=== PATIENT | male | born 1975 | race Caucasian/White ===

== ENCOUNTER 2019-04-26 15:57 | Emergency (ER) | payer MEDICARE, MEDICAID, SELFPAY ==
[2019-04-26 16:09] VITALS: BP 113/69; PULSE 88; RESP 14; TEMP 36.7; O2SAT 97
--- NOTE | 2019-04-26 16:42 | ED.URI ---
HPI - URI/Sore Throat General Chief Complaint: Upper Respiratory Infection Stated Complaint: Cough/congestion/drainage/headache Time Seen by Provider: 04/26/19 16:35 Source: patient Mode of arrival: ambulatory Limitations: no limitations History of Present Illness HPI Narrative: damir Donovan is a 43 yo male with a PMH of cleft palate , GERD, HTN, who comes to the urgent care with ongoing congestion sent with sinus pain x 7 days. Because of history with cleft palate requires antibiotics for treatment Related Data Home Medications Medication Instructions Recorded Confirmed buspirone 10 mg PO BID 04/26/19 04/26/19 gabapentin 100 mg PO TID 04/26/19 04/26/19 ramipril 2.5 mg PO DAILY 04/26/19 04/26/19 ranitidine HCl [Zantac] 150 mg PO BID 04/26/19 04/26/19 sertraline 100 mg PO DAILY 04/26/19 04/26/19 tacrolimus [Envarsus XR] 0.75 mg PO DAILY 04/26/19 04/26/19 Allergies Allergy/AdvReac Type Severity Reaction Status Date / Time lisinopril Allergy Intermediate SEVERE Verified 03/17/18 18:27 JOINT PAIN UNKNOWN ANTI-REJECTION MEDS Allergy Severe Dyspnea / Uncoded 04/26/19 16:18 SOB Review of Systems Review of Systems: Narrative: CONSTITUTIONAL: Denies fever, chills, sweats. EYES: Denies visual changes, redness, discharge. ENT: Denies rhinorrhea, has congestion, sore throat, otalgia. Sinus pain CARDIOVASCULAR: Denies chest pain, palpitations, edema. RESPIRATORY: Denies dyspnea, wheezing, has cough GASTROINTESTINAL: Denies abdominal pain, nausea, vomiting, diarrhea. GENITOURINARY: Denies dysuria, hematuria, abnormal discharge SKIN: Denies rash or itching. NEUROLOGIC: Denies numbness, or focal weakness. PSYCHIATRIC: Denies anxiety or depression. [facility] Family History Family History Other Hypertension Kidney disease Social History Social History (Updated 04/26/19 @ 16:46 by Delmi Martinez CNP) Smoking status: Never smoker Alcohol intake: never Comments At time of signature, I agree with nursing past medical, surgical, social and family history. There is no relevant family history pertinent to the presenting complaint. Exam Narrative: Exam Narrative: GENERAL: This is a well-nourished, well-developed patient, in mild distress. HEAD: normocephalic, atraumatic. EYES:Sclera clear/white. Vision is grossly intact. EARS: External ears normal, auditory canals clear and without drainage, TMs normal without perforation. Hearing grossly intact. NOSE: External nose normal with nasal discharge, nares with redness, rhinorrhea. Maxillary sinus pressure THROAT: Mucous membranes moist, posterior pharynx erythema NECK: Neck supple, tender without lymphadenopathy, masses or thyromegaly. CARDIOVASCULAR: Regular rate and rhythm without murmurs, gallops, or rubs. RESPIRATORY: Clear to auscultation. Breath sounds equal bilaterally. No wheezes, rales, or rhonchi. GASTROINTESTINAL: Abdomen soft, non-tender, nondistended. SKIN: warm, intact with no suspicious lesions or rash, good texture and turgor. NEURO: awake, alert, and oriented to person, place and time. There were no obvious focal neurologic abnormalities. Steady gait EXTREMITIES: Normal range of motion. No edema. BACK: Nontender without deformity or crepitance. Course Course Emergency Course: Start amoxicillin-already on prednisone for kidney transplant, uses Flonase at home Follow up with PCP Vital Signs Vital signs: Vital Signs Temperature 98.1 F 04/26/19 16:09 Pulse Rate 88 04/26/19 16:09 Respiratory Rate 14 04/26/19 16:09 Blood Pressure 113/69 04/26/19 16:09 Pulse Oximetry 97 04/26/19 16:09 Temperature 98.1 F 04/26/19 16:09 Pulse Rate 88 04/26/19 16:09 Respiratory Rate 14 04/26/19 16:09 Blood Pressure 113/69 04/26/19 16:09 Pulse Oximetry 97 04/26/19 16:09 MDM - URI/Sore Throat Differential Diagnosis Differential diagnosis: Likely upper respi
== END 2019-04-26 17:01 | disposition home or self-care (01) ==
PROVIDERS: Emergency Provider Nurse Practitioner; PCP Internal Medicine
DX: J01.01 Acute recurrent maxillary sinusitis (principal); K21.9 Gastro-esophageal reflux disease without esophagitis; I10 Essential (primary) hypertension; Q35.9 Cleft palate, unspecified; F32.9 Major depressive disorder, single episode, unspecified; Z94.0 Kidney transplant status
CPT/HCPCS: 99213; G0463

== ENCOUNTER 2022-06-09 17:33 | Emergency (ER) | payer OTHER, SELFPAY ==
--- NOTE | ~2022-06-09 | XR_ITS ---
EXAM: XR hand LT min 3V DATE: 06/09/2022 17:53 HISTORY: Mag light hit his left hand on fri Swelling/bruise . COMPARISON: None available. FINDINGS: Normal mineralization. No fracture or dislocation. No lytic or blastic lesion. Joint space s are maintained. No erosion or periosteal change. Surgical clips and serpiginous soft tissue density in the lateral wrist soft tissues, likely shunt. IMPRESSION: No acute osseous finding in the left hand. Reviewed, dictated and finalized at location K.
--- NOTE | 2022-06-09 17:39 | ED.GENADULT ---
HPI - General Adult General Chief complaint: Extremity Injury, Upper Stated complaint: Left Hand Injury Source: patient and RN notes reviewed History of Present Illness HPI narrative: 46 yo M presents to urgent care with complaints of left hand pain and swelling. Pt states a 5lb, metal, light fell onto his hand approximately 1 week ago. Pt states he had significnat swelling to the area and was seen in the ER. 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 Pt had a CT obtained in the ER after the incident and had negative findings. Pt states the swelling has gone down 2 days ago and the pain has increased. Denies any numbness or tingling. Pt has been taking Tylenol with no relief. Related Data Home Medications Medication Instructions Recorded Confirmed gabapentin 100 mg capsule 100 mg PO TID 04/26/19 06/09/22 ramipril 2.5 mg capsule 2.5 mg PO DAILY 04/26/19 06/09/22 sertraline 100 mg tablet 150 mg PO DAILY 04/26/19 06/09/22 tacrolimus 0.75 mg tablet,extended 0.75 mg PO QAM 04/26/19 06/09/22 release 24 hr (Envarsus XR) buspirone 15 mg tablet 15 mg PO BID 06/09/22 06/09/22 cholecalciferol (vitamin D3) 25 25 mcg PO DAILY 06/09/22 06/09/22 mcg (1,000 unit) tablet (Vitamin D3) omega 1-ukm-qgy-fish oil 1,200 mg 1 cap PO DAILY 06/09/22 06/09/22 (144 mg-216 mg) capsule (Fish Oil) omeprazole 20 mg capsule,delayed 20 mg PO QHS 06/09/22 06/09/22 release ondansetron 8 mg disintegrating 8 mg PO Q8H PRN Nausea 06/09/22 06/09/22 tablet prednisone 5 mg tablet 5 mg PO DAILY 06/09/22 06/09/22 rosuvastatin 10 mg tablet 10 mg PO DAILY 06/09/22 06/09/22 Allergies Allergy/AdvReac Type Severity Reaction Status Date / Time lisinopril AdvReac Intermediate SEVERE Verified 06/09/22 17:56 JOINT PAIN UNKNOWN ANTI-REJECTION MEDS Allergy Severe Dyspnea / Uncoded 06/09/22 18:03 SOB Review of Systems Review of Systems: CONSTITUTIONAL: Denies fever, chills, or sweats. EYES: Denies visual changes, redness, or discharge. ENT: Denies otalgia and sore throat CARDIOVASCULAR: Denies chest pain, palpitations, or edema. RESPIRATORY: Denies cough or dyspnea. GASTROINTESTINAL: Denies abdominal pain, nausea, vomiting, or diarrhea. GENITOURINARY: Denies dysuria or hematuria. SKIN: Denies rash or itching. MUSCULOSKELETAL: Left hand pain NEUROLOGIC: Denies headache, numbness, or weakness. Pertinent positives per HPI. [facility] Family History Family History Other Hypertension Kidney disease Social History Social History (Updated 04/26/19 @ 16:46 by Delmi Martinez, CONSULTANT NURSE) Smoking status: Never smoker Alcohol intake: never Comments At the time of my signature, I reviewed and agree with the nursing past medical, surgical, social, and family history. There is no relevant family history pertinent to the patient complaint. Exam Narrative: GENERAL: This is a well-nourished, well-developed patient, in no apparent distress. HEAD: normocephalic, atraumatic. EYES: Sclera clear/white. Vision is grossly intact. EARS: External ears normal, auditory canals clear and without drainage. Hearing grossly intact. NOSE: External nose normal with no obvious nasal discharge, nares without redness, no rhinorrhea. CARDIOVASCULAR: Regular rate and rhythm without murmurs, gallops, or rubs. RESPIRATORY: Clear to auscultation. Breath sounds equal bilaterally. No wheezes, rales, or rhonchi. GASTROINTESTINAL: Abdomen soft, non-tender, nondistended. Bowel sounds are active. No hepato-splenomegaly, or palpable masses. No guarding. SKIN: warm, intact with no suspicious lesions or rash, good texture and turgor. NEURO: awake, alert, and oriented to person, place and time. There were no obvious focal neurologic abnormalities. EXTREMITIES: No clubbing, cyanosis. Moderate swelling noted over left dorsal hand extending into wrist. No wrist tenderness. Tenderness noted over snuff box area. brusing
[2022-06-09 17:43] VITALS: BP 130/78; PULSE 83; RESP 16; TEMP 37; O2SAT 98
== END 2022-06-09 18:33 | disposition home or self-care (01) ==
PROVIDERS: Emergency Provider Nurse Practitioner Family; PCP Internal Medicine
DX: S60.222A Contusion of left hand, initial encounter (principal); W20.8XXA Other cause of strike by thrown, projected or falling object, initial encounter
CPT/HCPCS: 73130; 99203; G0463

== ENCOUNTER 2022-07-15 18:04 | Emergency (ER) | payer OTHER, SELFPAY ==
[2022-07-15 18:09] VITALS: BP 125/74; PULSE 89; RESP 18; TEMP 36.1; O2SAT 99
--- NOTE | 2022-07-15 18:11 | ED.URI ---
HPI - URI/Sore Throat General Chief Complaint: Upper Respiratory Infection Stated Complaint: congestion Source: patient, family and RN notes reviewed History of Present Illness HPI Narrative: 47 yo M presents to urgent care with complaints of congestion, cough, and HERRERA x 6 days. Pt states he was coughing up clear phlegm initially but now his phlegm is yellow in color. Pt reports cold sweats. Reports some SOB with exertion. Pt denies any fevers, chest pain, vomiting, or abdominal pain. Pt is a kidney transplant pt. Related Data Home Medications Medication Instructions Recorded Confirmed gabapentin 100 mg capsule 100 mg PO TID 04/26/19 07/15/22 ramipril 2.5 mg capsule 2.5 mg PO DAILY 04/26/19 07/15/22 sertraline 100 mg tablet 150 mg PO DAILY 04/26/19 07/15/22 tacrolimus 0.75 mg tablet,extended 0.75 mg PO QAM 04/26/19 07/15/22 release 24 hr (Envarsus XR) buspirone 15 mg tablet 15 mg PO BID 06/09/22 07/15/22 cholecalciferol (vitamin D3) 25 25 mcg PO DAILY 06/09/22 07/15/22 mcg (1,000 unit) tablet (Vitamin D3) omega 7-swi-kff-fish oil 1,200 mg 1 cap PO DAILY 06/09/22 07/15/22 (144 mg-216 mg) capsule (Fish Oil) omeprazole 20 mg capsule,delayed 20 mg PO QHS 06/09/22 07/15/22 release prednisone 5 mg tablet 5 mg PO DAILY 06/09/22 07/15/22 rosuvastatin 10 mg tablet 10 mg PO DAILY 06/09/22 07/15/22 Allergies Allergy/AdvReac Type Severity Reaction Status Date / Time lisinopril AdvReac Intermediate SEVERE Verified 07/15/22 18:18 JOINT PAIN UNKNOWN ANTI-REJECTION MEDS Allergy Severe Dyspnea / Uncoded 07/15/22 18:18 SOB Review of Systems Review of Systems: Pertinent positives and pertinent negatives per HPI. PMFSH Family History Family History Other Hypertension Kidney disease Social History Social History (Updated 04/26/19 @ 16:46 by Delmi Martinez, WATCH CRYSTAL CUTTER) Smoking status: Never smoker Alcohol intake: never Comments At the time of my signature, I reviewed and agree with the nursing past medical, surgical, social, and family history. There is no relevant family history pertinent to the patient complaint. Exam Narrative: GENERAL: This is a well-nourished, well-developed patient, in no apparent distress. HEAD: normocephalic, atraumatic. EYES: Sclera clear/white. Vision is grossly intact. EARS: External ears normal, auditory canals clear and without drainage. Hearing grossly intact. NOSE: External nose normal with no obvious nasal discharge, nares without redness, no rhinorrhea. THROAT: Mucous membranes moist, posterior pharynx clear. NECK: Neck supple, non-tender without lymphadenopathy, masses or thyromegaly. CARDIOVASCULAR: Regular rate and rhythm without murmurs, gallops, or rubs. RESPIRATORY: Clear to auscultation. Breath sounds equal bilaterally. No wheezes, rales, or rhonchi. SKIN: warm, intact with no suspicious lesions or rash, good texture and turgor. NEURO: awake, alert, and oriented to person, place and time. There were no obvious focal neurologic abnormalities. Course Course Level of Care: Express Care Visit Vital Signs Vital signs: Vital Signs Temperature 97 F L 07/15/22 18:09 Pulse Rate 89 07/15/22 18:09 Respiratory Rate 18 07/15/22 18:09 Blood Pressure 125/74 07/15/22 18:09 Pulse Oximetry 99 07/15/22 18:09 Oxygen Delivery Room Air 07/15/22 18:09 Temperature 97 F L 07/15/22 18:09 Pulse Rate 89 07/15/22 18:09 Respiratory Rate 18 07/15/22 18:09 Blood Pressure 125/74 07/15/22 18:09 Pulse Oximetry 99 07/15/22 18:09 Oxygen Delivery Room Air 07/15/22 18:09 Reviewed MDM - URI/Sore Throat MDM Narrative Medical decision making narrative: Take steroids as directed. May use the inhaler every 4-6 hours as needed for coughing. Increase fluids at home. Avoid any and all smoke. May use a humidifier in the bedroom. Increase your Vitamin C. Follow-up with personal
== END 2022-07-15 18:35 | disposition home or self-care (01) ==
PROVIDERS: Emergency Provider Nurse Practitioner Family; PCP Internal Medicine
DX: J40 Bronchitis, not specified as acute or chronic (principal); J32.9 Chronic sinusitis, unspecified; Z94.0 Kidney transplant status; E78.00 Pure hypercholesterolemia, unspecified; I10 Essential (primary) hypertension; K21.9 Gastro-esophageal reflux disease without esophagitis; F41.9 Anxiety disorder, unspecified; F32.A Depression, unspecified
CPT/HCPCS: 99213; G0463

== ENCOUNTER 2023-04-19 19:00 | Emergency (ER) | payer MEDICARE, SELFPAY ==
--- NOTE | ~2023-04-19 | XR_ITS ---
XR ankle RT min 3V 04/19/2023 19:17 INDICATION: Right ankle pain PROCEDURE: 4 views right ankle COMPARISON: No prior studies for comparison. FINDINGS: Fracture, dislocation or subluxation is not identified. The soft tissues appear within norm al limits. No foreign bodies are identified. Moderate soft tissue swelling of the ankle. IMPRESSION: 1: NO ACUTE BONE OR JOINT ABNORMALITY IDENTIFIED. Reviewed, dictated and finalized at location A.
[2023-04-19 19:08] VITALS: BP 114/74; PULSE 79; RESP 16; TEMP 35.9; O2SAT 97
--- NOTE | 2023-04-19 19:42 | ED.LOWEXIN ---
HPI - Extremity Injury (Lower) General Chief Complaint: Extremity Injury, Lower Stated Complaint: right ankle injury Time Seen by Provider: 04/19/23 19:32 Source: patient, RN notes reviewed and old records reviewed Mode of arrival: ambulatory Limitations: no limitations History of Present Illness HPI Narrative: 47 year old male who presents to [facility] with complaints of rolling his right ankle 3 weeks ago and has been having some intermittent swelling to the medial aspect of his right ankle since. Patient reports that he has been applying ice intermittently to his ankle and elevated and has been taking Tylenol for his discomfort. MD complaint: ankle injury (right) Onset (ago): week(s) (3) Type of Injury: other (rolled his ankle) Place: home Severity scale (1-10): 2 Treatments prior to arrival: cold therapy and other (Tylenol, elevation, courtney) Related Data Home Medications Medication Instructions Recorded Confirmed gabapentin 100 mg capsule 100 mg PO TID 04/26/19 04/19/23 ramipril 2.5 mg capsule 2.5 mg PO DAILY 04/26/19 04/19/23 sertraline 100 mg tablet 150 mg PO DAILY 04/26/19 04/19/23 tacrolimus 0.75 mg tablet,extended 0.75 mg PO QAM 04/26/19 04/19/23 release 24 hr (Envarsus XR) buspirone 15 mg tablet 15 mg PO BID 06/09/22 04/19/23 cholecalciferol (vitamin D3) 25 25 mcg PO DAILY 06/09/22 04/19/23 mcg (1,000 unit) tablet (Vitamin D3) omega 9-oho-nly-fish oil 1,200 mg 1 cap PO DAILY 06/09/22 04/19/23 (144 mg-216 mg) capsule (Fish Oil) omeprazole 20 mg capsule,delayed 20 mg PO QHS 06/09/22 04/19/23 release rosuvastatin 10 mg tablet 10 mg PO DAILY 06/09/22 04/19/23 Allergies Allergy/AdvReac Type Severity Reaction Status Date / Time lisinopril AdvReac Intermediate SEVERE Verified 04/19/23 19:36 JOINT PAIN Review of Systems Review of Systems: CONSTITUTIONAL: Denies fever, chills, or sweats. EYES: Denies visual changes, redness, or discharge. ENT: Denies rhinorrhea, congestion, sore throat, or otalgia. CARDIOVASCULAR: Denies chest pain, palpitations, or edema. RESPIRATORY: Denies cough or dyspnea. GASTROINTESTINAL: Denies abdominal pain, nausea, vomiting, or diarrhea. GENITOURINARY: Denies dysuria or hematuria. SKIN: Denies rash or itching. MUSCULOSKELETAL: Denies back pain, positive for right medial ankle pain, or myalgia. NEUROLOGIC: Denies headache, numbness, or weakness. PSYCHIATRIC: Reports history of anxiety or depression. All systems reviewed & are unremarkable except as noted in HPI and below PMFSH Past Medical History Medical History (Updated 04/20/23 @ 15:24 by Nicole Purcell NP) Arteriovenous fistula of left upper extremity Cleft palate Elevated serum cholesterol Fracture of right ankle GERD (gastroesophageal reflux disease) HTN (hypertension) Neuropathy Surgical History Surgical History (Updated 04/20/23 @ 15:24 by Nicole Purcell NP) History of appendectomy History of repair of cleft lip 18 surgeries Kidney transplant recipient Family History Family History Other Hypertension Kidney disease Social History Social History (Updated 04/20/23 @ 15:18 by Nicole Purcell NP) Smoking status: Never smoker Alcohol intake: never Living arrangements: with family Gender identity (if verbalized by the patient): Male Comments At time of signature, agree with nursing past medical, surgical, social and family history. There is no relevant family history pertinent to the presenting complaint Exam Narrative: GENERAL: Well-appearing, well-nourished, and in no acute distress. HEAD: Normocephalic, atraumatic. EYES: PERRLA and EOMI. ENT: Nares clear, no rhinorrhea or epistaxis. Mucous membranes moist.TM;s normal throat pink with no swelling NECK: Supple.no lymphadenopathy CHEST: Clear to auscultation. No respiratory distress. SAO2 97% on room air HEART: Regular rate and rhythm. No murmur heard. Norm
== END 2023-04-19 19:55 | disposition home or self-care (01) ==
PROVIDERS: Emergency Provider Registered Nurse
DX: S93.401A Sprain of unspecified ligament of right ankle, initial encounter (principal); S96.911A Strain of unspecified muscle and tendon at ankle and foot level, right foot, initial encounter; X50.9XXA Other and unspecified overexertion or strenuous movements or postures, initial encounter; K21.9 Gastro-esophageal reflux disease without esophagitis; I10 Essential (primary) hypertension; G62.9 Polyneuropathy, unspecified; Z94.0 Kidney transplant status
CPT/HCPCS: 73610; 99213; G0463

== ENCOUNTER 2023-12-26 13:40 | Emergency (ER) | payer MEDICARE, SELFPAY ==
--- NOTE | ~2023-12-26 | XR_ITS ---
Clinical Indication: Cough PA and lateral views of the chest: Comparison: 03/17/2018 Findings: The lungs are clear, without evidence of focal consolidation or pleural effusion. Cardiome diastinal silhouette is within normal limits. Bones and soft tissues are unremarkable. Impression: Normal chest. Reviewed, dictated and finalized at [facility]. TENANCE COORDINATOR Impression: Normal chest.
--- NOTE | 2023-12-26 13:42 | ED.URI ---
HPI - URI/Sore Throat General Chief Complaint: Upper Respiratory Infection Stated Complaint: Congestion/Cough/Chills Time Seen by Provider: 12/26/23 13:42 Source: patient, RN notes reviewed and old records reviewed Mode of arrival: ambulatory Limitations: no limitations History of Present Illness HPI Narrative: 48-year-old male to [facility] with complaint nasal congestion, chills without fever, sore throat and body aches for 5 days. Patient has attempted to treat at home with cough drops with little relief. Patient denies shortness of breath, chest pain, ear pain, GI complaints, pertinent medical history. Patient able to tolerate fluids by mouth. Patient resting comfortably in exam room in no acute distress. Respirations even and nonlabored. Patient able to speak in complete sentences without difficulty. Related Data Home Medications Medication Instructions Recorded Confirmed gabapentin 100 mg capsule 100 mg PO TID 04/26/19 04/19/23 ramipril 2.5 mg capsule 2.5 mg PO DAILY 04/26/19 04/19/23 sertraline 100 mg tablet 150 mg PO DAILY 04/26/19 04/19/23 tacrolimus 0.75 mg tablet,extended 0.75 mg PO QAM 04/26/19 04/19/23 release 24 hr (Envarsus XR) buspirone 15 mg tablet 15 mg PO BID 06/09/22 04/19/23 cholecalciferol (vitamin D3) 25 25 mcg PO DAILY 06/09/22 04/19/23 mcg (1,000 unit) tablet (Vitamin D3) omega 5-ljf-elf-fish oil 1,200 mg 1 cap PO DAILY 06/09/22 04/19/23 (144 mg-216 mg) capsule (Fish Oil) omeprazole 20 mg capsule,delayed 20 mg PO QHS 06/09/22 04/19/23 release rosuvastatin 10 mg tablet 10 mg PO DAILY 06/09/22 04/19/23 prednisone 5 mg tablet mg 12/26/23 Allergies Allergy/AdvReac Type Severity Reaction Status Date / Time lisinopril AdvReac Intermediate SEVERE Verified 04/19/23 19:36 JOINT PAIN Review of Systems Review of Systems: All systems reviewed & are unremarkable except as noted in HPI and below Constitutional: Constitutional: Reports as per HPI, Reports body ache(s) and Reports chills Eyes: Eyes: Reports no additional eye complaints ENT: Reports as per HPI and Reports sore throat Cardiovascular: Cardiovascular: Reports no additional cardiovascular complaints, Denies chest pain and Denies dyspnea Respiratory: Respiratory: Reports as per HPI, Reports cough and Denies dyspnea Musculoskeletal: Musculoskeletal: Reports no additional musculoskeletal complaints Neurologic: Reports system reviewed and no additional complaints, except as documented Psychiatric: Psychiatric: Reports no additional psychiatric complaints PMFSH Past Medical History Medical History Arteriovenous fistula of left upper extremity Cleft palate Elevated serum cholesterol Fracture of right ankle GERD (gastroesophageal reflux disease) HTN (hypertension) Neuropathy Surgical History Surgical History History of appendectomy History of repair of cleft lip 18 surgeries Kidney transplant recipient Family History Family History Other Hypertension Kidney disease Social History Social History Smoking status: Never smoker Alcohol intake: never Living arrangements: with family Gender identity (if verbalized by the patient): Male Comments At the time of my signature, I reviewed and agree with the nursing past medical, surgical, social, and family history. There is no relevant family history pertinent to the patient complaint. Exam Const: General: cooperative, comfortable, no acute distress, alert and well nourished Nutritional Appearance: well nourished Orientation/consciousness: patient oriented x3 Limitations: no limitations HENMT: Head: normal to inspection Ears: external ears normal Face/Nose/Sinus: Normal external nose present, Normal nares present, normal facial exam, No erythema and No edema Face and sinus: normal facial exam, no erythema and no edema Mouth: Yes Normal oral and palatal mucosa present Throat: posterior oropharynx abnormal erythema Eyes: General: appearance normal, both eyes and all related structures Neck: Neck: normal visual inspection, full ROM and no meningeal signs Lymphatic: no lymphadenopathy noted and no lymphedema noted Chest: Chest palpation & inspection: normal inspection of the chest Resp: Effort & Inspection: normal respiratory effort and able to speak in complete sentences Auscultation: clear to auscultation bilaterally and diminished lung sounds diffuse Cardio: Jugular venous distension: no JVD Rate: regular rate Rhythm: regular rhythm Back/Spine/Pelvis: Cervical Spine: cervical ROM normal Skin: General skin exam: normal color, no rashes or lesions noted and turgor normal Neuro: General: patient oriented x3, gait normal, moves all extremities and no meningeal signs Speech: normal speech Gait exam (Neuro): Normal gait present Extrem: General: normal to inspection, full ROM and capillary refill normal Psych: Appearance: grossly normal and well kempt Course Course Emergency Course: Some parts of this dictation were generated by voice recognition software and may contain typographical and/or grammatical inaccuracies. Level of Care: Express Care Visit Vital Signs Vital signs: Vital Signs Temperature 35.8 C L 12/26/23 13:59 Pulse Rate 78 12/26/23 13:59 Respiratory Rate 18 12/26/23 13:59 Blood Pressure 135/66 12/26/23 13:59 Pulse Oximetry 97 12/26/23 13:59 Oxygen Delivery Room Air 12/26/23 13:59 Temperature 35.8 C L 12/26/23 13:59 Pulse Rate 78 12/26/23 13:59 Respiratory Rate 18 12/26/23 13:59 Blood Pressure 135/66 12/26/23 13:59 Pulse Oximetry 97 12/26/23 13:59 Oxygen Delivery Room Air 12/26/23 13:59 reviewed MDM - URI/Sore Throat MDM Narrative Medical decision making narrative: 48-year-old male to [facility] Care with complaint nasal congestion, chills without fever, sore throat and body aches for 5 days. Patient has attempted to treat at home with cough drops with little relief. Patient denies shortness of breath, chest pain, ear pain, GI complaints, pertinent medical history. Patient able to tolerate fluids by mouth. Patient resting comfortably in exam room in no acute distress. Respirations even and nonlabored. Patient able to speak in complete sentences without difficulty. On exam, posterior oropharynx erythematous. Bilateral lung sounds diminished diffusely. Cough present during exam. Chest x-ray in clinic negative for acute findings. Patient is sitting comfortably in exam room nontoxic in appearance. Patient appropriate for outpatient treatment and follow-up. Discharge instructions reviewed with patient, as well as provided in writing per nursing staff. The instructions also include specific and strict return/GO TO THE ER as well as f/u information. All questions have been answered, and the patient deny any further questions with discharge and discharge plan. Some parts of this dictation were generated by voice recognition software and may contain typographical and/or grammatical inaccuracies. Differential Diagnosis Differential diagnosis: Likely upper respiratory infection, croup, otitis media, sinusitis, viral infection, bronchitis, influenza and pharyngitis Imaging Data Radiologist's impression: Clinical Indication: Cough PA and lateral views of the chest: Comparison: 03/17/2018 Findings: The lungs are clear, without evidence of focal consolidation or pleural effusion. Cardiomediastinal silhouette is within normal limits. Bones and soft tissues are unremarkable. Impression: Normal chest. Discharge Plan Discharge Clinical Impression: Upper respiratory infection Patient Disposition: Home, Self-Care Condition: Stable Instructions: Upper Respiratory Infection (DC) Additional Instructions: Your symptoms are likely due to a viral illness, which is not treated with antibiotics. Viral symptoms can be present for up to a few weeks. -Alternate Tylenol and Motrin per package directions for fever or pain. -Antihistamine medication such as Benadryl at night and Zyrtec/Claritin/Tiffany during the day can help improve symptoms. -Use Flonase twice a day for 5 days then daily to help reduce the inflammation and dry up your sinuses. -You can also use Coricidin. Be sure to drink plenty of water with these medications at least 8 ounces with every dose and it is important to drink 8 to 10 glasses of water per day. Water is a natural decongestant -Eat and drink things that are easy to swallow, like tea or soup, or popsicles. -Oral rinses such as: Salt water gargles and/or may use topical anesthetic (eg. Chloraseptic spray) or lozenges to relieve dryness or throat pain). -Frequent hand washing or hand agricultural labor camp manager is one of the best ways to prevent spread of infection. -Using a vaporizer or humidifier at night will also help thin secretions and help with coughing up phlegm. -Follow up with primary care provider in 2-3 days if condition is not improving; or seek ER visit if you have trouble breathing, cannot drink enough fluids, have muffled voice, difficulty opening your mouth, or severe swelling. Prescriptions: No Action sertraline 100 mg Tablet 150 mg PO DAILY ramipril 2.5 mg Capsule 2.5 mg PO DAILY gabapentin 100 mg Capsule 100 mg PO TID Envarsus XR 0.75 mg Tablet Extended Release 24 Hr 0.75 mg PO QAM buspirone 15 mg tablet 15 mg PO BID omeprazole 20 mg capsule,delayed release(DR/EC) 20 mg PO QHS rosuvastatin 10 mg tablet 10 mg PO DAILY cholecalciferol (vitamin D3) [Vitamin D3] 25 mcg (1,000 unit) Tablet 25 mcg PO DAILY omega 3-tij-kvp-fish oil [Fish Oil] 1,200 (144-216) mg Capsule 1 cap PO DAILY prednisone 5 mg tablet albuterol sulfate 90 mcg/actuation HFA aerosol inhaler 2 puff inhalation QID PRN (Reason: shortness of breath or wheezing) Qty: 8.5 0RF Follow-up/Referrals: Alfonso,MD Renea [Primary Care Provider] - Stand Alone Forms: Work/School Release IP
[2023-12-26 13:59] VITALS: BP 135/66; PULSE 78; RESP 18; TEMP 35.8; O2SAT 97
== END 2023-12-26 15:12 | disposition home or self-care (01) ==
PROVIDERS: Emergency Provider Nurse Practitioner Family; PCP Internal Medicine
DX: J06.9 Acute upper respiratory infection, unspecified (principal); I10 Essential (primary) hypertension; K21.9 Gastro-esophageal reflux disease without esophagitis; G62.9 Polyneuropathy, unspecified; Z94.0 Kidney transplant status
CPT/HCPCS: 71046; 99213; G0463

== ENCOUNTER 2024-01-10 18:39 | Emergency (ER) | payer MEDICARE, SELFPAY ==
[2024-01-10 18:42] VITALS: BP 143/84; PULSE 84; RESP 22; TEMP 36; O2SAT 98
--- NOTE | 2024-01-10 18:58 | ED.URI ---
HPI - URI/Sore Throat General Chief Complaint: Upper Respiratory Infection Stated Complaint: wheezing/fatigue Time Seen by Provider: 01/10/24 18:58 Source: patient and RN notes reviewed Mode of arrival: ambulatory Limitations: no limitations History of Present Illness HPI Narrative: 48-year-old male presents with concern of for 2 new half week cough. Reports he was seen 2 weeks ago and had a negative chest x-ray. Reports his cough has persisted and has become productive. He reports fatigue. Reports difficulty sleeping at night due to his cough. He has had a kidney transplant and is on immunosuppressant drugs. MD elicited complaint: cough Related Data Home Medications Medication Instructions Recorded Confirmed gabapentin 100 mg capsule 100 mg PO TID 04/26/19 04/19/23 ramipril 2.5 mg capsule 2.5 mg PO DAILY 04/26/19 04/19/23 sertraline 100 mg tablet 150 mg PO DAILY 04/26/19 04/19/23 tacrolimus 0.75 mg tablet,extended 0.75 mg PO QAM 04/26/19 04/19/23 release 24 hr (Envarsus XR) buspirone 15 mg tablet 15 mg PO BID 06/09/22 04/19/23 cholecalciferol (vitamin D3) 25 25 mcg PO DAILY 06/09/22 04/19/23 mcg (1,000 unit) tablet (Vitamin D3) omega 1-hfl-gsj-fish oil 1,200 mg 1 cap PO DAILY 06/09/22 04/19/23 (144 mg-216 mg) capsule (Fish Oil) omeprazole 20 mg capsule,delayed 20 mg PO QHS 06/09/22 04/19/23 release rosuvastatin 10 mg tablet 10 mg PO DAILY 06/09/22 04/19/23 prednisone 5 mg tablet mg 12/26/23 Allergies Allergy/AdvReac Type Severity Reaction Status Date / Time lisinopril AdvReac Intermediate SEVERE Verified 04/19/23 19:36 JOINT PAIN Review of Systems Review of Systems: CONSTITUTIONAL: Denies malaise, chills, sweats, or fever. Reports fatigue EYES: Denies visual changes, redness, or discharge. ENT: Reports rhinorrhea, congestion CARDIOVASCULAR: Denies chest pain, palpitations, or edema. RESPIRATORY: Reports productive cough and chest congestion. Denies dyspnea. GASTROINTESTINAL: Denies abdominal pain, nausea, vomiting, diarrhea SKIN: Denies rash or itching. MUSCULOSKELETAL: Denies myalgia. NEUROLOGIC: Denies headache. All systems reviewed & are unremarkable except as noted in HPI and below PMFSH Past Medical History Medical History Arteriovenous fistula of left upper extremity Cleft palate Elevated serum cholesterol Fracture of right ankle GERD (gastroesophageal reflux disease) HTN (hypertension) Neuropathy Surgical History Surgical History History of appendectomy History of repair of cleft lip 18 surgeries Kidney transplant recipient Family History Family History Other Hypertension Kidney disease Social History Social History Smoking status: Never smoker Alcohol intake: never Living arrangements: with family Gender identity (if verbalized by the patient): Male Comments At time of signature, agree with nursing past medical, surgical, social and family history. There is no relevant family history pertinent to the presenting complaint Exam Narrative: GENERAL: Well-appearing, well-nourished, and in no acute distress. HEAD: Normocephalic EYES: PERRLA, conjunctivae clear ENT: Nares clear, turbinates edematous and erythematous, clear discharge. Mucous membranes moist. TM pearly mazariegos with dull light reflex bilaterally; no tragal tenderness. Oropharynx not erythematous without lesions. Tonsils not enlarged and without exudate, no drooling, no hoarseness, no trismus, uvula midline. NECK: Supple. No lymphadenopathy CHEST: Clear to auscultation, breath sounds equal. No wheezing, rhonchi, rales, or stridor. No respiratory distress, speaks in full sentences. HEART: Regular rate and rhythm. No murmur heard. SKIN: Warm, dry, no rash. NEURO: Alert and oriented x3. PSYCH: Normal mood and affect Course Course Emergency Course: Patient is aware of diagnosis, understands and agrees to treatment plan. Anticipatory guidance given. Patient agrees to follow-up as directed and is aware of reasons to seek care at the emergency department. Portions of this record may have been created with voice recognition software Level of Care: Express Care Visit Vital Signs Vital signs: Vital Signs Temperature 96.8 F L 01/10/24 18:42 Pulse Rate 84 01/10/24 18:42 Respiratory Rate 22 H 01/10/24 18:42 Blood Pressure 143/84 H 01/10/24 18:42 Pulse Oximetry 98 01/10/24 18:42 Oxygen Delivery Room Air 01/10/24 18:42 Temperature 96.8 F L 01/10/24 18:42 Pulse Rate 84 01/10/24 18:42 Respiratory Rate 22 H 01/10/24 18:42 Blood Pressure 143/84 H 01/10/24 18:42 Pulse Oximetry 98 01/10/24 18:42 Oxygen Delivery Room Air 01/10/24 18:42 Reviewed. MDM - URI/Sore Throat MDM Narrative Medical decision making narrative: Differential diagnosis considered: Hernandez virus, strep pharyngitis, allergic rhinitis, upper respiratory tract infection, sinusitis, rhinosinusitis, nasopharyngitis. viral pharyngitis, otitis media, otitis externa, pneumonia, bronchitis, viral cough syndrome, viral syndrome, and influenza. Exam findings show no acute concerns or changes; patient is non-toxic appearing and is in no distress. Patient is appropriate for outpatient treatment and follow-up. Lab Data Attestation: I reviewed the patient's lab results. Critical Care Time Critical Care Time Critical Care Time: No Discharge Plan Discharge Clinical Impression: Lower respiratory tract infection Patient Disposition: Home, Self-Care Condition: Stable Instructions: Antibiotic Form, Acute Cough (ED) Additional Instructions: Take medications as prescribed Also, recommend symptomatic treatment includes: rest, fluids, and increase humidity of the air at home. Recommend Acetaminophen as directed on the bottle to reduce fever, pain, headache. Avoid smoking/second-hand smoke. Please schedule a follow-up visit with your personal physician for further evaluation and treatment within 3-5days. If your symptoms persist, change or worsen significantly before you can contact your personal physician then please, without delay, go to the emergency department for further evaluation. Prescriptions: New azithromycin [Zithromax Z-Gene] 250 mg tablet See Rx Instructions .ROUTE .COMPLEX Qty: 6 0RF Rx Instructions: take 500 mg today (day 1), then 250 mg for 4 days (days 2-5) No Action sertraline 100 mg Tablet 150 mg PO DAILY ramipril 2.5 mg Capsule 2.5 mg PO DAILY gabapentin 100 mg Capsule 100 mg PO TID Envarsus XR 0.75 mg Tablet Extended Release 24 Hr 0.75 mg PO QAM buspirone 15 mg tablet 15 mg PO BID omeprazole 20 mg capsule,delayed release(DR/EC) 20 mg PO QHS rosuvastatin 10 mg tablet 10 mg PO DAILY cholecalciferol (vitamin D3) [Vitamin D3] 25 mcg (1,000 unit) Tablet 25 mcg PO DAILY omega 8-jqs-hrt-fish oil [Fish Oil] 1,200 (144-216) mg Capsule 1 cap PO DAILY prednisone 5 mg tablet albuterol sulfate 90 mcg/actuation HFA aerosol inhaler 2 puff inhalation QID PRN (Reason: shortness of breath or wheezing) Qty: 8.5 0RF Follow-up/Referrals: Alfonso,MD Renea [Primary Care Provider] - Time of Disposition: 19:05
== END 2024-01-10 19:09 | disposition home or self-care (01) ==
PROVIDERS: Emergency Provider Nurse Practitioner; PCP Internal Medicine
DX: J22 Unspecified acute lower respiratory infection (principal); I10 Essential (primary) hypertension; K21.9 Gastro-esophageal reflux disease without esophagitis; G62.9 Polyneuropathy, unspecified; Z94.0 Kidney transplant status
CPT/HCPCS: 99213; G0463

== ENCOUNTER 2024-05-27 11:16 | Emergency (ER) | payer MEDICARE, SELFPAY ==
[2024-05-27 11:25] VITALS: BP 150/99; PULSE 86; RESP 20; TEMP 36.7; O2SAT 96
--- NOTE | 2024-05-27 11:43 | ED.URI ---
HPI - URI/Sore Throat General Chief Complaint: Upper Respiratory Infection Stated Complaint: Nasal Congestion/Headache/Cough Time Seen by Provider: 05/27/24 11:43 Source: patient, RN notes reviewed and old records reviewed Mode of arrival: ambulatory Limitations: no limitations History of Present Illness HPI Narrative: 48 year old male presents to express care with complaints of nasal congestion sneezing, headache and cough with some wheezing noted since Monday. Patient reports no known fevers, chills or sweats or any body aches. He states that he has been taking Sudafed for his symptoms. Patient reports history of sinus problems and has had repair of cleft lip with total of 18 surgeries. Patient is kidney transplant patient in 2017 with prior dialysis. Patient reports that kidney is functioning well and he takes his daily anti rejection medications MD elicited complaint: cough, rhinorrhea, nasal congestion, sinus pain and other (headache) Pertinent past history: immunosuppression (on anti rejection edications for kidney transplant) and other (sinus problems and repair of cleft lip) Onset (ago): day(s) (day 3 of symptoms) Consistency: constant Pain scale (0-10): 4 Able to tolerate fluids by mouth: Yes Treatments prior to arrival: other (Sudafed) Related Data Home Medications ?Medication ?Instructions ?Recorded ?Confirmed ?Last Taken ?Type gabapentin 100 mg capsule 100 mg PO TID 04/26/19 04/19/23 Unknown History ramipril 2.5 mg capsule 2.5 mg PO DAILY 04/26/19 04/19/23 Unknown History sertraline 100 mg tablet 150 mg PO DAILY 04/26/19 04/19/23 Unknown History tacrolimus 0.75 mg tablet,extended 0.75 mg PO QAM 04/26/19 04/19/23 Unknown History release 24 hr (Envarsus XR) buspirone 15 mg tablet 15 mg PO BID 06/09/22 04/19/23 Unknown History cholecalciferol (vitamin D3) 25 25 mcg PO DAILY 06/09/22 04/19/23 Unknown History mcg (1,000 unit) tablet (Vitamin D3) omega 9-wgj-cxs-fish oil 1,200 mg 1 cap PO DAILY 06/09/22 04/19/23 Unknown History (144 mg-216 mg) capsule (Fish Oil) omeprazole 20 mg capsule,delayed 20 mg PO QHS 06/09/22 04/19/23 Unknown History release rosuvastatin 10 mg tablet 10 mg PO DAILY 06/09/22 04/19/23 Unknown History prednisone 5 mg tablet mg 12/26/23 Unknown History mycophenolate sodium PO 05/27/24 Unknown History Allergies Allergy/AdvReac Type Severity Reaction Status Date / Time atorvastatin (From Lipitor) Allergy Unknown Unknown Verified 05/27/24 11:32 lisinopril AdvReac Intermediate SEVERE Verified 05/27/24 11:31 JOINT PAIN Review of Systems Review of Systems: CONSTITUTIONAL: Reports malaise, no chills, sweats, or fever. EYES: Denies visual changes, redness, or discharge. ENT: Reports rhinorrhea, congestion, sinus pain, no otalgia and no sore throat. CARDIOVASCULAR: Denies chest pain, palpitations, or edema. RESPIRATORY: Reports cough.? Denies dyspnea.states has noted some wheezing when supine GASTROINTESTINAL: Denies abdominal pain, nausea, vomiting, diarrhea SKIN: Denies rash or itching. MUSCULOSKELETAL: Denies myalgia. NEUROLOGIC: Reports frontal headache. All systems reviewed & are unremarkable except as noted in HPI and below PMFSH Past Medical History Medical History Anxiety and depression Arteriovenous fistula of left upper extremity Fracture of right ankle Elevated serum cholesterol Neuropathy GERD (gastroesophageal reflux disease) HTN (hypertension) Cleft palate Surgical History Surgical History Kidney transplant recipient History of appendectomy History of repair of cleft lip 18 surgeries Family History Family History Other Hypertension Kidney disease Social History Social History Smoking status: Never smoker Alcohol intake: never Living arrangements: with family Gender identity (if verbalized by the patient): Male Comments At time of signature, agree with nursing past medical, surgical, social and family history. There is no relevant family history pertinent to the presenting complaint Exam Narrative: GENERAL: Well-appearing, well-nourished, and in no acute distress. HEAD: Normocephalic EYES: PERRLA, conjunctivae clear ENT: Nares clear, turbinates edematous and erythematous, clear discharge. Mucous membranes moist, sinus pressure and frontal headache. TM pearly mazariegos with dull light reflex bilaterally; no tragal tenderness. Oropharynx erythematous without lesions. Tonsils not enlarged and without exudate, no drooling, no hoarseness, no trismus, uvula midline.post nasal drainage NECK: Supple. No lymphadenopathy CHEST: Clear to auscultation, breath sounds equal. No wheezing, rhonchi, rales, or stridor. No respiratory distress, speaks in full sentences. cough, reports some wheezing when supine noted, denies any dyspnea SAO2 96% on room air HEART: Regular rate and rhythm. No murmur heard. SKIN: Warm, dry, no rash. NEURO: Alert and oriented x3. PSYCH: Normal mood and affect Course Course Emergency Course: Patient is aware of diagnosis, understands and agrees to treatment plan.? Anticipatory guidance given.? Patient agrees to follow-up as directed and is aware of reasons to seek care at the emergency department. Portions of this record may have been created with voice recognition software Level of Care: Express Care Visit Vital Signs Vital signs: Vital Signs Temperature 36.7 C 05/27/24 11:25 Pulse Rate 86 05/27/24 11:25 Respiratory Rate 20 05/27/24 11:25 Blood Pressure 150/99 H 05/27/24 11:25 Pulse Oximetry 96 05/27/24 11:25 Oxygen Delivery Room Air 05/27/24 11:25 Temperature 36.7 C 05/27/24 11:25 Pulse Rate 86 05/27/24 11:25 Respiratory Rate 20 05/27/24 11:25 Blood Pressure 150/99 H 05/27/24 11:25 Pulse Oximetry 96 05/27/24 11:25 Oxygen Delivery Room Air 05/27/24 11:25 Reviewed MDM - URI/Sore Throat MDM Narrative Medical decision making narrative: Differential diagnosis considered: Hernandez virus, strep pharyngitis, allergic rhinitis, upper respiratory tract infection, sinusitis, rhinosinusitis, nasopharyngitis. viral pharyngitis, otitis media, otitis externa, pneumonia, bronchitis, viral cough syndrome, viral syndrome, and influenza.? Exam findings show no acute concerns or changes; patient is non-toxic appearing and is in no distress.? Patient is appropriate for outpatient treatment and follow-up. Differential Diagnosis Differential diagnosis: Likely upper respiratory infection, sinusitis, viral infection and other (cough) Medical Records Attestation: I reviewed the patient's medical records. Lab Data Attestation: I reviewed the patient's lab results. Critical Care Time Critical Care Time Critical Care Time: No Discharge Plan Discharge Clinical Impression: URI with cough and congestion Patient Disposition: Home Condition: Stable Instructions: Upper Respiratory Infection (ED), Acute Cough (ED) Additional Instructions: Increase fluids especially juices and water Lowc-hki-jxvrizy cough and cold medicine of your choice for your symptoms Continue your inhaler/nebulizer as directed Zyrtec or Claritin or Tiffany daily include Coricidin brand decongestant heat to the face 20-30 minutes 4-6 times a day for pain Salt water gargles, throat lozenges or throat sprays as desired Antibiotic as directed--finished the medication If your symptoms persist, change or worsen significantly before you can contact your personal physician then please, without delay, go to the emergency department for further evaluation. Follow-up with PCP in 7-10 days or sooner if needed Follow up with PCP soon in regards to your blood pressure which is elevated above threshold for referral. Blood pressure above 120/80 may indicate pre-hypertension. Patient Language: Zimbabwean Prescriptions: New amoxicillin 500 mg capsule 500 mg PO Q8H Qty: 30 0RF Rx Instructions: take all does of oral antibiotic albuterol sulfate [Ventolin HFA] 90 mcg/actuation HFA aerosol inhaler 2 puff inhalation QID PRN (Reason: shortness of breath or wheezing) Qty: 6.7 0RF Rx Instructions: as needed for cough and congestion No Action sertraline 100 mg Tablet 150 mg PO DAILY ramipril 2.5 mg Capsule 2.5 mg PO DAILY gabapentin 100 mg Capsule 100 mg PO TID Envarsus XR 0.75 mg Tablet Extended Release 24 Hr 0.75 mg PO QAM buspirone 15 mg tablet 15 mg PO BID omeprazole 20 mg capsule,delayed release(DR/EC) 20 mg PO QHS rosuvastatin 10 mg tablet 10 mg PO DAILY cholecalciferol (vitamin D3) [Vitamin D3] 25 mcg (1,000 unit) Tablet 25 mcg PO DAILY omega 8-fif-bqj-fish oil [Fish Oil] 1,200 (144-216) mg Capsule 1 cap PO DAILY prednisone 5 mg tablet mycophenolate sodium [Myfortic] PO Follow-up/Referrals: Ac,Alicia Rand MD [Primary Care Provider] - Time of Disposition: 11:56 Quality Kathy Coma Scale Eyes: Open Verbal: Oriented and Alert Motor: Follows Commands Kathy Coma Total Score: 15
--- OUTSIDE RECORDS SUMMARY | 2024-05-27 13:05 | XMS_ITS ---
Author Organization [facility] Address [address] [place] [address] Care Team Providers Care Manager Heavy Duty Name Role Phone Renea Hamilton MD Primary Care Provider [phone] Alta Lopez RN Unavailable [phone] Carol Soriano RN Unavailable [phone] Violetta Cagle MD Unavailable [phone] Transplant Episode Kidney Recipient [facility] ([place], [place]) [facility] Organ Received: Left Kidney Transplanted on 08/11/2016 Marked as Active Follow-up on 08/11/2016 Kidney CoordinatorAlta Lopez RN Fax: N/A Email: N/A Three Affiliated Organ Diagnosis Organ Primary Contributory Kidney IgA Nephropathy Retransplant Diagnosis Organ Primary Contributory Kidney IgA Nephropathy Infection History Noted Survival Infection Treatment Organism Resolved 10/01/2020 4 years 1 month Pneumonia due to COVID-19 virus Donor Information Organ ABO Source Meets Risk Criteria HLA Match Mismatches Cross Match Left Kidney Transplanted O DCD No A: B: DR: Left Kidney Donor Serology Results Anti-CMV CMV IgG: Positive EBV IgG EBV VCA IgG: Positive Anti-HBcAb HBC Total: Negative HBsAg HBsAg: Negative HBV DNA No results on file Anti-HCV HCV: Negative Anti-HIV I/II No results on file Anti-HTLV I/II HTLV: Not Done RPR/VDRL RPR: Negative EBV IgM EBV VCA IgM: Negative HBsAb No results on file EBNA No results on file SARS CoV-2 No results on file Care Team Name Role Phone Fax Email Alta Lopez RN Kidney Coordinator [phone] N/A N/A Alta Lopez RN Acls Specialist [phone] N/A N/A Carol Soriano RN Secondary Coordinator Secondary Kidney Coordinator [phone] N/A N/A Rita Guillen Secondary Whiskey Filterer N/A N/A N/A Lucero Wyatt Spray Foam Installer [phone] N/A N/A Events Post-Transplant Pre-Transplant Admitted: 08/04/2016 Referred: 01/22/2016 Transplanted: 08/11/2016 Evaluation began: 6 Discharged: 08/18/2016 UNOS qualified: 01/12/2013 Center waitlisted: 6 Dialysis History Dialysis History Start End Type Comments Center 01/12/2013 [facility] M-W-F - 2:30-6:30pm [facility] Dialysis Center Information Center Phone Fax Address [facility] [phone] [facility] [id number]
--- OUTSIDE RECORDS SUMMARY | 2024-05-27 13:05 | XMS_ITS | Referral Summary ---
Author Organization [facility] Address [address] [place] [address] Care Team Providers Care Felt Checker Name Role Phone Renea Hamilton MD Primary Care Provider [phone] Alta Lopez RN Unavailable Carol Soriano RN Unavailable Violetta Cagle MD Unavailable [phone] Encounters Date Type Department Care Team Description 05/24/2024 Orders Only [facility] Nephrology [address] 5th [place] [address] [place] [phone] Jean Marie Zuñiga MD 05/23/2024 1:30 PM CDT Office Visit [facility] [address] [place] [address] Lebron Olivas MD MERCEDES (obstructive sleep apnea) (Primary Dx); Hypersomnia with sleep apnea; Morbid obesity with BMI of 40.0-44.9, adult (HCC) 05/20/2024 Telephone [facility] Transplant Kidney [id number] [place] [address] Rita Guillen 05/02/2024 Telephone [facility] Transplant Kidney [address] [facility] [address] [phone] [place] [address] Rita Guillen 04/26/2024 Orders Only [facility] Nephrology [address] 5th [place] [address] [place] [address] Jean Marie Zuñiga MD 04/24/2024 4:59 PM CDT - 04/24/2024 11:59 PM CDT Hospital Encounter [address] [address] Encounter for aftercare following kidney transplant Discharge Disposition: Discharge to home or self care 04/24/2024 3:00 PM CDT Office Visit [facility] Nephrology [address] [place] [address] 5th [place] [address] [place] [address] Nicole Strickland MD Encounter for aftercare following kidney transplant (Primary Dx); Encounter for long-term (current) use of high-risk medication; Kidney replaced by transplant; Hx of obesity 03/07/2024 Orders Only [facility] Nephrology [address] 5th [place] [address] [place] [address] Jean Marie Zuñiga MD from Last 3 Months Allergies Active Allergy Reactions Criticality Noted Date Comments Alemtuzumab Anaphylaxis High 08/15/2016 Atorvastatin Other (See comments),Joint pain Medium 03/08/2013 Reaction: MYALGIA, Lisinopril Other (See comments),Rash Medium 05/11/2018 Lymphocyte,Anti-Thymo Imm Glob Anaphylaxis High 08/15/2016 Sulfamethoxazole-Trimet hoprim Diarrhea,Rash Medium 01/20/2016 Anti-Thymocyte Glob (Rabbit) Anaphylaxis High 08/15/2016 Medications aspirin 81 mg enteric coated tablet Take 1 tablet (81 mg total) by mouth daily 01/18/20 16 Active omega 6-dnt-wkx-fish oil 300-1,000 mg capsule Take 1 capsule by mouth daily 02/10/19 18 Active gabapentin (NEURONTIN) 100 mg capsule Take 1 capsule (100 mg total) by mouth 3 (three) times a day 08/16/19 17 Active cholecalciferol (VITAMIN D-3) 2,000 unit tablet Take 1 tablet (2,000 Units total) by mouth daily 01/18/20 16 Active sertraline (ZOLOFT) 100 mg tablet Take 1 tablet (100 mg total) by mouth daily Active busPIRone (BUSPAR) 10 mg tablet Take 1 tablet (10 mg total) by mouth 2 (two) times a day 05/21/19 20 Active azelastine (ASTELIN) 137 mcg (0.1 %) nasal spray USE 2 SPRAYS IN EACH NOSTRIL TWICE DAILY 09/02/19 21 Active rosuvastatin (CRESTOR) 10 mg tablet Take 1 tablet (10 mg total) by mouth daily 09/02/19 21 Active ondansetron ODT (ZOFRAN-ODT) 8 mg disintegrating tablet Take 1 tablet (8 mg total) by mouth every 8 (eight) hours as needed for nausea or vomiting 30 tablet 09/25/19 21 Active tacrolimus XR (Envarsus XR) 0.75 mg tablet extended release 24 hrIndications:Kid sisi replaced by transplant Take 2 tablets (1.5 mg total) by mouth renal technician before breakfast 60 tablet 11 06/06/19 24 2024 Active ramipriL (ALTACE) 2.5 mg capsule Take 1 capsule (2.5 mg total) by mouth daily 90 capsule 3 06/08/19 24 2024 Active tacrolimus XR (ENVARSUS XR) 0.75 mg tablet extended release 24 hrIndications:Pre vention of Kidney Transplant Rejection Take 2 tablets (1.5 mg total) by mouth daily 60 tablet 07/02/19 24 Active predniSONE (DELTASONE) 5 mg tabletIndications :Kidney replaced by transplant Take 1 tablet (5 mg) by mouth daily 90 tablet 3 09/25/19 24 Active omeprazole (PriLOSEC) 20 mg capsule Take 1 capsule (20 mg total) by mouth daily 90 capsule 3 10/25/19 [address] (MYFORTIC) 360 mg EC tabletIndications :Kidney replaced by transplant Take 1 tablet (360 mg total) by mouth daily 05/21/[address] (MYFORTIC) 180 mg EC tablet Take 2 tablets (360 mg total) by mouth 2 (two) times a day 120 tablet 11 04/27/19 25 03/27/ 2025 Discontinued(R eorder) mycophenolate sodium (MYFORTIC) 360 mg EC tabletIndications :Kidney replaced by transplant Take 1 tablet (360 mg total) by mouth 2 (two) times a day 05/03/192024 Discontinued Active Problems Patient Care Coordination No te Formatting of this note migh t be different from the original. [facility]: Q-MONTHLY, FK; Q-3 ROUTINE (Exp. 06/08/24) Problem Noted Date Diagnosed Date Dyslipidemia 03/24/2021 Acute respiratory failure with hypoxia Pneumonia due to COVID-19 virus 10/01/2020 Assessment & Plan (10/01/2020 3:59 AM CDT): Patient tested positive on 09/24/2020. His SpO2 was as low as 90% on room air. Will start patient on Decadron. Patient is also coughing up some green sputum, will start patient empirically on ceftriaxone and azithromycin for possible superimposed bacterial pneumonia as patient is immune suppressed due to his renal transplant and check procalcitonin. Continue with supportive care. May want to check with transplant team to see if patient would be a candidate for remdesivir given his MARIA VICTORIA. Renal transplant recipient 10/01/2020 Assessment & Plan (10/01/2020 3:58 AM CDT): Patient is on prednisone which has been changed to Decadron. Patient also on tacrolimus XR which has been resumed. will be bring in home medication this morning. MARIA VICTORIA (acute kidney injury) 10/01/2020 Assessment & Plan (10/01/2020 4:00 AM CDT): Baseline creatinine of 1.3-1.4. Patient presented with a creatinine of 1.86. Likely prerenal due to poor intake for 2 weeks. Continue with IV hydration. Renal function is improving. Hold all nephrotoxins. Patient is on ramipril which will be held. Obesity (BMI 30-39.9) 10/01/2020 GERD (gastroesophageal reflux disease) Assessment & Plan (10/01/2020 4:01 AM CDT): Continue PPI Anxiety 10/01/2020 Assessment & Plan (10/01/2020 4:01 AM CDT): Continue home medications MERCEDES (obstructive sleep apnea) 10/01/2020 Assessment & Plan (10/01/2020 4:03 AM CDT): Patient cannot tolerate our NPPV. Unfortunately with COVID, patient cannot use his home CPAP. Hyponatremia 09/30/2020 Assessment & Plan (10/01/2020 4:00 AM CDT): Most likely secondary to poor p.o. intake. Patient is not eaten in 2 weeks. Continue with IV fluids. Will continue to monitor. Tiredness 10/11/2017 Encounter for aftercare following kidney transpl ant 10/11/2017 Encounter for long-term (current) use of antibio tics 10/11/2017 Encounter for long-term (cur rent) use of high-risk medication 10/11/2017 Immunizations Immunization Administration Dates Next Due Influenza, Quadrivalent, Split, Intramuscular ,03/22/2017 Influenza, Unspecified 10/08/2015 Td, Unspecified 02/07/2012 Tdap 09/07/2015 Social History Tobacco Use Types Packs/Day Years Used Date Smoking Tobacco: Never Smokeless Tobacco: Never Tobacco Cessation:Counseling Given: Not Answered PHQ-2 Answer Date Recorded PHQ-2 Total Score (If total score is 3 or more points, staff should administer the PHQ-9) 0 10/02/2020 Personal Safety Answer Date Recorded Have you ever been in or are you currently in a harmful physical or emotional relationship or is someone making you feel afraid or unsafe? 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 Gender Identity Not on file Sexual Orientation Not on file Last Filed Vital Signs Vital Sign Reading Time Taken Comments Blood Pressure 122/79 05/23/2024 1:45 PM CDT Pulse 94 05/23/2024 1:45 PM CDT Temperature 36.4 C (97.5 F) 04/24/2024 3:28 PM CDT Respiratory Rate 18 06/03/2022 10:10 AM CDT Oxygen Saturation 94% 05/23/2024 1:45 PM CDT Inhaled Oxygen Concentration - - Weight 130 kg (286 lb 9.6 oz) 05/23/2024 1:45 PM CDT Height 177.8 cm (5' 10 ) 05/23/2024 1:45 PM CDT Body Mass Index 41.12 05/23/2024 1:45 PM CDT Plan of Treatment Not on file Procedures Procedure Name Priority Date/Time Associated Diagnosis Comments TACROLIMUS, HIGHLY SENSITIVE, LC/MS/MS Routine 05/24/2024 10:29 AM CDT RENAL FUNCTION PANEL Routine 05/24/2024 10:29 AM CDT CBC WITH AUTO DIFFERENTIAL Routine 05/24/2024 10:29 AM CDT COPY(IES) SENT TO: Routine 05/24/2024 10 :29 AM CDT TACROLIMUS, HIGHLY SENSITIVE, LC/MS/MS Routine 04/26/2024 9:48 AM CDT RENAL FUNCTION PANEL Routine 04/26/2024 9:48 AM CDT CBC WITH AUTO DIFFERENTIAL Routine 04/26/2024 9:48 AM CDT COPY(IES) SENT TO: Routine 04/26/2024 9: 48 AM CDT URINALYSIS AND REFLEX TO MICROSCOPIC Routine 04/24/2024 4:59 PM CDT Encounter for aftercare following kidney transplant POCT URINALYSIS DIPSTICK Routine 04/24/2024 3:49 PM CDT Encounter for aftercare following kidney transplant TACROLIMUS, HIGHLY SENSITIVE, LC/MS/MS Routine 03/07/2024 9:56 AM ENGINEERING MODEL MAKER RENAL FUNCTION PANEL Routine 03/07/2024 9:56 AM ENGINEERING MODEL MAKER CBC WITH AUTO DIFFERENTIAL Routine 03/07/2024 9:56 AM ENGINEERING MODEL MAKER COPY(IES) SENT TO: Routine 03/07/2024 9: 56 AM ENGINEERING MODEL MAKER HEPATITIS C ANTIBODY After X-Ray 08/10/2016 9:28 PM CDT from Last 3 Months or Most Recently Relevant to Health Maintenance Results * Tacrolimus, Highly Sensitive, LC/MS/MS (05/24/2024 10:29 AM CDT) Tacrolimus, Highly Sensitive, LC/MS/MS 5.4 mcg/L [facility] Comment: No definitive therapeutic or toxic ranges have been established. Optimal blood drug levels are influenced by type of transplant, patient response, time post- transplant, co-administration of other drugs, and drug formulation. The following trough range is a suggested guideline: 5.0-20.0 mcg/L. 05/24/2024 10:2 9 AM CDT 05/24/2024 10:30 AM CDT Narrative [facility] - 05/27/2024 9:33 AM CDT RW FASTING:YES FASTING: YES Jean Marie Zuñiga MD LAB BLOOD ORDERABLES Final Resu lt Performing Organization Address City/[facility] Co de Phone Number [facility] [address] [place] [address] * COPY(IES) SENT TO: (05/24/2024 10:29 AM CDT) COPY(IES) SENT TO: [facility] Comment: [facility] - COPY TO [facility] [address] [place] [address] 05/24/2024 10:2 9 AM CDT 05/24/2024 10:30 AM CDT Narrative [facility] - 05/27/2024 9:33 AM CDT RW FASTING:YES FASTING: YES Jean Marie Zuñiga MD LAB BLOOD ORDERABLES Final Resu lt [facility] * (ABNORMAL) CBC with auto differential (05/24/2024 10:29 AM CDT) [facility] WBC 7.8 3.8 - 10.8 Thousand/u L [facility] RBC, POC 5.50 4.20 - 5.80 Million/uL [facility] Hgb 14.8 13.2 - 17.1 g/dL [facility] Hct 45.3 38.5 - 50.0 % [facility] MCV 82.4 80.0 - 100.0 fL [facility] MCH 26.9(L) 27.0 - 33.0 pg [facility] MCHC 32.7 32.0 - 36.0 g/dL [facility] Comment: For adults, a slight decrease in the calculated MCHC value (in the range of 30 to 32 g/dL) is most likely not clinically significant; however, it should be interpreted with caution in correlation with other red cell parameters and the patient's clinical condition. Rdw 13.3 11.0 - 15.0 % [facility] Platelets 179 140 - 400 Thousand/u L [facility] MPV 8.6 7.5 - 12.5 fL [facility] Neutrophils, abs 4,477 1,500 - 7,800 cells/uL [facility] Lymphocytes, abs 2,605 850 - 3,900 cells/uL [facility] Monocyte abs 585 200 - 950 cells/uL [facility] Eosinophils, abs 109 15 - 500 cells/uL [facility] Basophils, abs 23 0 - 200 cells/uL [facility] Neutrophils 57.4 % [facility] Lymphocyte pct 33.4 % [facility] Monocytes 7.5 % [facility] Eosinophils 1.4 % [facility] Basophils 0.3 % [facility] 05/24/2024 10:2 9 AM CDT 05/24/2024 10:30 AM CDT Narrative [facility] - 05/27/2024 9:33 AM CDT RW FASTING:YES FASTING: YES us Jean Marie Zuñiga MD LAB BLOOD ORDERABLES Final Resu lt Performing Organization Address City/[facility]/ZIP Co de Phone Number [facility] [address] [address] [phone] * (ABNORMAL) Renal function panel (05/24/2024 10:29 AM CDT) Glucose 104(H) 65 - 99 mg/dL [facility] Comment: Fasting reference interval For someone without known diabetes, a glucose value between 100 and 125 mg/dL is consistent with prediabetes and should be confirmed with a follow-up test. BUN 13 7 - 25 mg/dL [facility] Creatinine 1.38(H) 0.70 - 1.30 mg/dL [facility] eGFR 62 > OR = 60 mL/min/1.7 3m2 [facility] BUN/creat ratio 9 6 - 22 (calc) [facility] Sodium 138 135 - 146 mmol/L [facility] Potassium, pl 3.8 3.5 - 5.3 mmol/L [facility] Chloride 99 98 - 110 mmol/L [facility] CO2 29 20 - 32 mmol/L [facility] Calcium 9.7 8.6 - 10.3 mg/dL [facility] Phosphorus, sr 3.1 2.5 - 4.5 mg/dL [facility] Albumin 4.3 3.6 - 5.1 g/dL [facility] 05/24/2024 10:2 9 AM CDT 05/24/2024 10:30 AM CDT Narrative [facility] - 05/27/2024 9:33 AM CDT RW FASTING:YES FASTING: YES us Jean Marie Zuñiga MD LAB BLOOD ORDERABLES Final Resu lt [facility] [address] [place] [address] * (ABNORMAL) Tacrolimus, Highly Sensitive, LC/MS/MS (04/26/2024 9:48 AM CDT) Pathologist [facility] Tacrolimus, Highly Sensitive, LC/MS/MS 3.4(L) mcg/L [facility] Comment: No definitive therapeutic or toxic ranges have been established. Optimal blood drug levels are influenced by type of transplant, patient response, time post- transplant, co-administration of other drugs, and drug formulation. The following trough range is a suggested guideline: 5.0-20.0 mcg/L. 04/26/2024 9:48 AM CDT 04/26/2024 9:48 AM CDT Narrative [facility] - 04/29/2024 3:08 PM CDT RW FASTING:NO FASTING: NO Jean Marie Zuñiga MD LAB BLOOD ORDERABLES Final Resu lt Performing Organization Address City/[facility]/ZIP Co de Phone Number [facility] [address] [place] [address] * COPY(IES) SENT TO: (04/26/2024 9:48 AM CDT) Pathologist [facility] COPY(IES) SENT TO: [facility] Comment: [facility] - COPY TO [facility] [address] [place] [address] 04/26/2024 9:48 AM CDT 04/26/2024 9:48 AM CDT Narrative [facility] - 04/29/2024 3:08 PM CDT RW FASTING:NO FASTING: NO us Jean Marie Zuñiga MD LAB BLOOD ORDERABLES Final Resu lt [facility] * (ABNORMAL) CBC with auto differential (04/26/2024 9:48 AM CDT) Pathologist [facility] WBC 7.4 3.8 - 10.8 Thousand/u L [facility] RBC, POC 5.37 4.20 - 5.80 Million/uL [facility] Hgb 14.2 13.2 - 17.1 g/dL [facility] Hct 44.5 38.5 - 50.0 % [facility] MCV 82.9 80.0 - 100.0 fL [facility] MCH 26.4(L) 27.0 - 33.0 pg [facility] MCHC 31.9(L) 32.0 - 36.0 g/dL [facility] Comment: For adults, a slight decrease in the calculated MCHC value (in the range of 30 to 32 g/dL) is most likely not clinically significant; however, it should be interpreted with caution in correlation with other red cell parameters and the patient's clinical condition. Rdw 13.8 11.0 - 15.0 % [facility] Platelets 182 140 - 400 Thousand/u L [facility] MPV 9.0 7.5 - 12.5 fL [facility] Neutrophils, abs 4,359 1,500 - 7,800 cells/uL [facility] Lymphocytes, abs 2,472 850 - 3,900 cells/uL [facility] Monocyte abs 451 200 - 950 cells/uL [facility] Eosinophils, abs 89 15 - 500 cells/uL [facility] Basophils, abs 30 0 - 200 cells/uL [facility] Neutrophils 58.9 % [facility] Lymphocyte pct 33.4 % [facility] Monocytes 6.1 % [facility] Eosinophils 1.2 % [facility] Basophils 0.4 % [facility] 04/26/2024 9:48 AM CDT 04/26/2024 9:48 AM CDT Narrative [facility] - 04/29/2024 3:08 PM CDT RW FASTING:NO FASTING: NO us Jean Marie Zuñiga MD LAB BLOOD ORDERABLES Final Resu lt [facility] [address] [address] [address] [phone] * Renal function panel (04/26/2024 9:48 AM CDT) Glucose 104 65 - 139 mg/dL [facility] Comment: Non-fasting reference interval BUN 14 7 - 25 mg/dL [facility] Creatinine 1.28 0.70 - 1.30 mg/dL [facility] eGFR 68 > OR = 60 mL/min/1.7 3m2 [facility] BUN/creat ratio SEE NOTE: 6 - 22 (calc) [facility] Comment: Not Reported: BUN and Creatinine are within reference range. Sodium 140 135 - 146 mmol/L [facility] Potassium, pl 4.2 3.5 - 5.3 mmol/L [facility] Chloride 101 98 - 110 mmol/L [facility] CO2 32 20 - 32 mmol/L [facility] Calcium 9.8 8.6 - 10.3 mg/dL [facility] Phosphorus, sr 2.7 2.5 - 4.5 mg/dL [facility] Albumin 4.1 3.6 - 5.1 g/dL [facility] 04/26/2024 9:48 AM CDT 04/26/2024 9:48 AM CDT Narrative [facility] - 04/29/2024 3:08 PM CDT RW FASTING:NO FASTING: NO us Jean Marie Zuñiga MD LAB BLOOD ORDERABLES Final Resu lt [facility] [address] [place] [address] * Urinalysis reflex to microscopic (04/24/2024 4:59 PM CDT) Color, ur Straw Yellow Clarity, ur Clear Clear [facility] Specific gravity, ur 1.014 1.003 - 1.030 [facility] pH, urine 6.0 [facility] Comment: Interpretive Data U rine pH is affected by diet, medications, systemic acid-base disturbances, and renal tubular function. pH may affect urinary stone formation. For example, urine pH below 6.0 may help reduce the tendency for calcium phosphate stones and pH greater than 6.0 may reduce the tendency for uric acid stone formation. Source: [facility] Current Interpretive Data was last revised on 2017 Protein, ur ql Negative Negative [facility] Glucose, ur ql Negative Negative [facility] Ketones, ur Negative Negative [facility] Bilirubin, ur Negative Negative [facility] Blood, ur Negative Negative [facility] Urobilinogen, ur <2.0 <2.0 mg/dL [facility] Nitrite, ur Negative Negative [facility] Leukocyte esterase, ur Negative Negative [facility] UA reflex comment Reflex conditions for microscopic UA not met. [facility] Urine 04/24/2024 4:59 PM CDT 04/24/2024 5:06 PM CDT us Nicole Strickland MD LAB URINE ORDERABLE S Final Result [facility] Department [place] [address] * (ABNORMAL) POCT urinalysis dipstick (04/24/2024 3:49 PM CDT) Glucose, ur, POC Negative Negative MG/DL [facility] NO LAB FOUND Bilirubin, ur, POC Negative Negative, Small, Moderate, Large [facility] NO [facility] FOUND Ketones, ur, POC Negative Negative [facility] NO LAB FOUND Specific [place], POC 1.020 1.003 - 1.030 [facility] NO [facility] FOUND Blood, ur, POC Non-hemolyze d, trace(A) Negative [facility] NO LAB FOUND pH, ur, POC 5.5 5.0 - 8.0 [facility] NO L AB FOUND Protein, ur, POC Negative Negative [facility] NO LAB FOUND Urobilinogen, urine, POC 0.2 0.2 - 1.0 mg/dL [facility] NO LAB FOUND Nitrite, ur, POC Negative Negative [facility] NO LAB FOUND Leukocytes, ur, POC Negative Negative [facility] NO LAB FOUND Lot Number [id number] [facility] NO LA B FOUND Urine 04/24/2024 3:49 PM CDT Nicole Strickland MD POINT OF CARE TEST ORDERABLES Final Result Performing Organization Address [facility] Co de Phone Number [facility] NO LAB FOUND * (ABNORMAL) Tacrolimus, Highly Sensitive, LC/MS/MS (03/07/2024 9:56 AM ENGINEERING MODEL MAKER) Pathologist [facility] Tacrolimus, Highly Sensitive, LC/MS/MS 4.1(L) mcg/L [facility] Comment: No definitive therapeutic or toxic ranges have been established. Optimal blood drug levels are influenced by type of transplant, patient response, time post- transplant, co-administration of other drugs, and drug formulation. The following trough range is a suggested guideline: 5.0-20.0 mcg/L. 03/07/2024 9:56 AM ENGINEERING MODEL MAKER 03/07/2024 9:57 AM ENGINEERING MODEL MAKER Narrative [facility] - 03/08/2024 2:51 PM ENGINEERING MODEL MAKER RW FASTING:NO FASTING: NO Jean Marie Zuñiga MD LAB BLOOD ORDERABLES Final Resu lt Performing Organization Address [facility] Co de Phone Number [facility] [address] [place] [address] * COPY(IES) SENT TO: (03/07/2024 9:56 AM ENGINEERING MODEL MAKER) [facility] COPY(IES) SENT TO: [facility] Comment: [facility] - COPY TO [facility] [address] [place] [address] 03/07/2024 9:56 AM ENGINEERING MODEL MAKER 03/07/2024 9:57 AM ENGINEERING MODEL MAKER Narrative [facility] - 03/08/2024 2:51 PM ENGINEERING MODEL MAKER RW FASTING:NO FASTING: NO Jean Marie Zuñiga MD LAB BLOOD ORDERABLES Final Resu lt Performing Organization Address City/[facility]/ZIP Co de Phone Number [facility] * (ABNORMAL) CBC with auto differential (03/07/2024 9:56 AM ENGINEERING MODEL MAKER) Pathologist [facility] WBC 7.5 3.8 - 10.8 Thousand/u L [facility] RBC, POC 5.39 4.20 - 5.80 Million/uL [facility] Hgb 14.4 13.2 - 17.1 g/dL [facility] Hct 44.8 38.5 - 50.0 % [facility] MCV 83.1 80.0 - 100.0 fL [facility] MCH 26.7(L) 27.0 - 33.0 pg [facility] MCHC 32.1 32.0 - 36.0 g/dL [facility] Comment: For adults, a slight decrease in the calculated MCHC value (in the range of 30 to 32 g/dL) is most likely not clinically significant; however, it should be interpreted with caution in correlation with other red cell parameters and the patient's clinical condition. Rdw 13.7 11.0 - 15.0 % [facility] Platelets 168 140 - 400 Thousand/u L [facility] MPV 8.9 7.5 - 12.5 fL [facility] Neutrophils, abs 4,245 1,500 - 7,800 cells/uL [facility] Lymphocytes, abs 2,663 850 - 3,900 cells/uL [facility] Monocyte abs 495 200 - 950 cells/uL [facility] Eosinophils, abs 68 15 - 500 cells/uL [facility] Basophils, abs 30 0 - 200 cells/uL [facility] Neutrophils 56.6 % [facility] Lymphocyte pct 35.5 % [facility] Monocytes 6.6 % [facility] Eosinophils 0.9 % [facility] Basophils 0.4 % [facility] 03/07/2024 9:56 AM ENGINEERING MODEL MAKER 03/07/2024 9:57 AM ENGINEERING MODEL MAKER Narrative [facility] - 03/08/2024 2:51 PM ENGINEERING MODEL MAKER RW FASTING:NO FASTING: NO us Jean Marie Zuñiga MD LAB BLOOD ORDERABLES Final Resu lt [facility] [address] [place] [phone] * (ABNORMAL) Renal function panel (03/07/2024 9:56 AM ENGINEERING MODEL MAKER) Glucose 129 65 - 139 mg/dL [facility] Comment: Non-fasting reference interval BUN 18 7 - 25 mg/dL [facility] Creatinine 1.46(H) 0.70 - 1.30 mg/dL [facility] eGFR 58(L) > OR = 60 mL/min/1.7 3m2 [facility] BUN/creat ratio 12 6 - 22 (calc) [facility] Sodium 141 135 - 146 mmol/L [facility] Potassium, pl 4.1 3.5 - 5.3 mmol/L [facility] Chloride 104 98 - 110 mmol/L [facility] CO2 31 20 - 32 mmol/L [facility] Calcium 9.7 8.6 - 10.3 mg/dL [facility] Phosphorus, sr 3.3 2.5 - 4.5 mg/dL [facility] Albumin 4.2 3.6 - 5.1 g/dL [facility] 03/07/2024 9:56 AM ENGINEERING MODEL MAKER 03/07/2024 9:57 AM ENGINEERING MODEL MAKER Narrative [facility] - 03/08/2024 2:51 PM ENGINEERING MODEL MAKER RW FASTING:NO FASTING: NO us Jean Marie Zuñiga MD LAB BLOOD ORDERABLES Final Resu lt [facility] [address] [place] [address] * Hepatitis C antibody (08/10/2016 9:28 PM CDT) Pathologist [facility] Hep C Ab Nonreactive Nonreactive STEFANIE MCGINNIS Comment: Interpretive Data Positive and greyzone results should be confirmed by a molecular method. If positive or greyzone, a second separately collected sample should be submitted for Hepatitis C Virus RNA. Detection and Quantitation by Real-Time Reverse Helmet Hat Brim Cutter-PCR.Current Interpretive data was last revised on 2016. Blood specimen (specimen) 08/10/2016 9:28 PM CDT 08/10/2016 9:36 PM CDT Malgorzata PAULA LAB MICROBIOL OGY - GENERAL ORDERABLES Edited Result - Final STEFANIE [facility] Department [place] [address] from Last 3 Months or Most Recently Relevant to Health Maintenance Insurance UHC MEDICARE ADVANTAGE [facility] MEDICARE Address: [address] [address] [place] [address] [facility] MEDICARE ADVANTAGE [facility] MEDICARE Address: [facility] [address] [place] [phone] Advance Directives For more information, please contact: [phone] * Full Code (Latest Code Status on File) Date Activated Date Inactivated Comments 09/30/2020 7:06 PM 10/05/2020 2:14 PM Care Teams Felt Checker Relationship Specialty Start Date End Date Renea Hamilton MD [address]OUSER [address] [place] [address] PCP - General Internal Medicine 05/11/18 Alta Lopez, RN Drug Enforcement Agent 07/31/19 Carol Soriano, RN [address] [place] [address] [phone] Secondary Kidney Coordinator Transplant 03/05/20 Violetta Cagle MD [address] [place] [address] Consulting Physician Nephrology 10/04/20
--- OUTSIDE RECORDS SUMMARY | 2024-05-27 13:05 | XMS_ITS | Patient Health Record ---
Author Organization [facility] Address [address] [facility] [address] Z[place]ri[place] [address] REASON FOR REFERRAL No Information PROBLEMS Problem Type ICD Code Onset Dates Problem Status W/U Status Risk SNOMED Code Notes Problem Anxiety disorder, unspecified (F41.9) Active confirmed Anxiety disorde r (855967378) Problem Essential (primary) hypertension (I10) Active confirmed Essential hypertension (26134961) Problem Heart failure, unspecified (I50.9) Active confirmed Heart failure (55501744) Problem Renal osteodystrophy (N25.0) Active confirmed Renal osteodystrophy (10839149) Problem Proteinuria, unspecified (R80.9) Active confirmed Proteinuria (66499731) Problem Chronic kidney disease, stage 3a (N18.31) Active confirmed Chronic kidney disease stage 3A (disorder) (048609920) PLAN OF TREATMENT No Information
--- OUTSIDE RECORDS SUMMARY | 2024-05-27 13:05 | XMS_ITS | Clinical Summary ---
Author Organization [facility] Address [address] [place] [address] Care Team Providers Care Utility Assembler Name Role Phone Unavailable Primary Care Provider Unavailabl e Social History Tobacco Use Types Packs/Day Years Used Date Smoking Tobacco: Never Assessed Sex and Gender Information Value Date Recorded Sex Assigned at Not on file Legal Sex Male 9:24 PM CDT Gender Identity Not on file Sexual Orientation Not on file Plan of Treatment Health Maintenance Due Date Last Done Comments Colorectal Cancer Screening Colonoscopy (10 Years) 1973 Annual Physical 1976 Hepatitis C 06/30/1991 DTaP, Tdap and Td Vaccines ( 1 - Tdap) 1992 Hepatitis B Vaccines (1 of 3 - 19+ 3-dose series) 1992 Pneumococcal Vaccine: 50+ Ye ars (1 of 1 - PCV) 06/30/2023 Zoster Vaccines (1 of 2) 06/30/2023 COVID-19 Vaccine ( - 2023-2 5 season) 2023 Meningococcal B Vaccine Aged Out No l onger eligible based on patient's age to complete this topic Meningococcal Vaccine Aged Out No marisol mika eligible based on patient's age to complete this topic RSV Immunizations Under 20 Months Aged Out No longer eligible based on patient's age to complete this topic
--- OUTSIDE RECORDS SUMMARY | 2024-05-27 13:05 | XMS_ITS | Clinical Summary ---
Author Organization [facility] Address [address] [place] [address] Care Team Providers Care Reject Opener Name Role Phone Renea Hamilton MD Primary Care Provider [phone] Alta Lopez RN Unavailable Carol Soriano RN Unavailable Violetta Cagle MD Unavailable Allergies Active Allergy Reactions Criticality Noted Date [...] by mouth daily 01/18/20 16 Active omega 2-cjw-xav-fish oil 300-1,000 mg capsule Take 1 capsule [...] 2 tablets (1.5 mg total) by mouth quality review specialist before breakfast 60 tablet 11 06/06/19 24 [...] a day 120 tablet 11 04/27/19 25 2024 Discontinued(R eorder) mycophenolate sodium (MYFORTIC) 360 mg [...] (cur rent) use of high-risk medication 10/11/2017 Encounters Date Type Department Care Team Description 05/24/2024 Orders Only [facility] Nephrology [facility] 5th [place] [address] [place] [address] Jean Marie Zuñgia MD 05/23/2024 1:30 PM CDT Office Visit [facility] [address] [place] [address] [place] [phone] Lebron Olivas MD MERCEDES (obstructive sleep apnea) (Primary Dx); Hypersomnia with sleep apnea; Morbid obesity with BMI of 40.0-44.9, adult (HCC) 05/20/2024 Telephone [facility] Transplant Kidney [address] [facility] [address] [phone] [place] [address] Rita Guillen 05/02/2024 Telephone [facility] Transplant Kidney [address] [facility] [address] [phone] [place] [address] Rita Guillen 04/26/2024 Orders Only [facility] Nephrology [facility] Medicine 5th [place] [address] [place] [address] Jean Marie Zuñiga MD 04/24/2024 4:59 PM CDT - 04/24/2024 11:59 PM CDT Hospital Encounter [address] [address] Encounter for aftercare following kidney transplant Discharge Disposition: Discharge to home or self care 04/24/2024 3:00 PM CDT Office Visit [facility] Nephrology [facility] 5th [place] [address] [place] [phone] Nicole Strickland MD Encounter for aftercare following kidney transplant (Primary Dx); Encounter for long-term (current) use of high-risk medication; Kidney replaced by transplant; Hx of obesity 03/07/2024 Orders Only [facility] Nephrology [address] [place] [address] 5th [place] [address] [place] [address] Jean Marie Zuñiga MD from Last 3 Months Immunizations Immunization Administration Dates Next Due Influenza, Quadrivalent, Split, Intramuscular ,03/22/2017 Influenza, Unspecified 10/08/2015 Td, Unspecified 02/07/2012 Tdap 09/07/2015 Surgical History Surgery Date Site/Laterality Comments TUNNELED LINE PLACEMENT <5 YEARS 03/26/2013 N/A TUNNELED LINE PLACEMENT <5 YEARS 01/15/2013 N/A DIALYSIS CATHETER DECLOT 01/21/2016 N/A HI PLSTC RPR CL LIP/NSL DFRM PRIM PRTL/COMPL UNI Repair Of Cleft Lip - (Added by TW Conv) Family History Medical History Relation Name Comments Allergies Daughter FHx: allergies - (Added by TW Conv) Allergies Father FHx: allergies - (Added by TW Conv) Cancer Father Family history of malignant neoplasm - (Added by TW Conv) Diabetes Father Family history of diabetes mellitus - (Added by TW Conv)/Family history of diabetes mellitus - (Added by TW Conv) Prostate cancer Father Prostate can cer - (Added by TW Conv) Allergies Mother FHx: allergies - (Added by TW Conv) Depression Mother Family history of depression - (Added by TW Conv) Allergies Sister 1 FHx: allergies - (Added by TW Conv) Depression Sister 2 Family history of depression - (Added by TW Conv) Allergies Son 1 FHx: allergies - (Added by TW Conv) Asthma Son 2 Family history of asthma - (Added by TW Conv) Relation Name Status Comments Daughter Father Mother Sister 1 Sister 2 Son 1 Son 2 Social History Tobacco Use Types Packs/Day Years [...] on file Legal Sex Male 11:49 PM MODEL MAKING SUPERVISOR Gender Identity Not on file Sexual Orientation Not on file Obstetrics History Last Filed Vital Signs Vital Sign Reading [...] 05/23/2024 1:45 PM CDT Plan of Treatment Health Maintenance Due Date Last Done Comments Colon Cancer Screening-Colonoscopy 1973 Prostate Cancer Screening-PSA 1973 Hepatitis B Screening 06/30/1991 Regular Well Visit/Exam 18-64 06/30/1991 Pneumococcal vaccine <65 (1 of 2 - PCV) 1992 Zoster Vaccine (1 of 2) 1992 Depression Screening 09/30/2021 09/30/2020 Influenza Vaccine (Season Ended) 2024 12/27/2019, 12/12/2018, 12/25/2017, Additional history exists DTaP/Tdap/Td Vaccine (2 - Td or Tdap) 09/06/2025 09/07/2015, 02/07/2012 Hepatitis C Screening Completed 08/10/2016 , 08/04/2016, 02/23/2016, Additional history exists Procedures Procedure Name Priority Date/Time Associated Diagnosis [...] HIGHLY SENSITIVE, LC/MS/MS Routine 03/07/2024 9:56 AM MODEL MAKING SUPERVISOR RENAL FUNCTION PANEL Routine 03/07/2024 9:56 AM MODEL MAKING SUPERVISOR CBC WITH AUTO DIFFERENTIAL Routine 03/07/2024 9:56 AM MODEL MAKING SUPERVISOR COPY(IES) SENT TO: Routine 03/07/2024 9: 56 AM MODEL MAKING SUPERVISOR HEPATITIS C ANTIBODY After X-Ray 08/10/2016 9:28 PM CDT from Last 3 Months or Most Recently Relevant to Health Maintenance Results * Tacrolimus, Highly Sensitive, LC/MS/MS (05/24/2024 10:29 AM CDT) Pathologist [facility] Tacrolimus, Highly Sensitive, LC/MS/MS 5.4 mcg/L [facility] [...] ORDERABLES Final Resu lt Performing Organization Address City/[facility] Co de Phone Number QUE[facility] [address] [place] [address] * COPY(IES) SENT TO: (05/24/2024 10:29 AM CDT) [facility] COPY(IES) SENT TO: ROLDAN Comment: [facility] - COPY TO [facility] [address] [place] [address] 05/24/2024 10:2 9 AM CDT 05/24/2024 10:30 AM CDT Narrative [facility] - 05/27/2024 9:33 AM CDT RW FASTING:YES FASTING: YES Jean Marie Zuñiga MD LAB BLOOD ORDERABLES Final Resu lt Performing Organization Address City/[facility]/ZIP Co de Phone Number [facility] * (ABNORMAL) CBC with auto differential (05/24/2024 10:29 AM CDT) [facility] WBC 7.8 3.8 - 10.8 Thousand/u L [...] BLOOD ORDERABLES Final Resu lt [facility] [address] [address] [place] [address] * (ABNORMAL) Renal function panel (05/24/2024 10:29 AM CDT) [facility] Glucose 104(H) 65 - 99 mg/dL [facility] [...] LAB BLOOD ORDERABLES Final Resu lt [facility] [address] [address] [address] * (ABNORMAL) Tacrolimus, Highly Sensitive, LC/MS/MS (04/26/2024 9:48 AM CDT) [facility] Tacrolimus, Highly Sensitive, LC/MS/MS 3.4(L) [...] ORDERABLES Final Resu lt Performing Organization Address City/[facility] Co de Phone Number QUEST [facility] [address] [place] [address] * COPY(IES) SENT TO: (04/26/2024 9:48 AM CDT) COPY(IES) SENT TO: ROLDAN Comment: [facility] - COPY TO [facility] [address] [place] [address] 04/26/2024 9:48 AM CDT 04/26/2024 9:48 AM CDT Narrative [facility] - 04/29/2024 3:08 PM CDT RW FASTING:NO FASTING: NO Jean Marie Zuñiga MD LAB BLOOD ORDERABLES Final Resu lt Performing Organization Address City/[facility]/ZIP Co de Phone Number [facility] * (ABNORMAL) CBC with auto differential (04/26/2024 9:48 AM CDT) WBC 7.4 3.8 - 10.8 Thousand/u L [...] BLOOD ORDERABLES Final Resu lt [facility] [address] [address] [address] * Renal function panel (04/26/2024 9:48 AM CDT) [facility] Glucose 104 65 - 139 mg/dL [facility] [...] LAB BLOOD ORDERABLES Final Resu lt [facility] [address] [facility] [place] [address] * Urinalysis reflex to microscopic (04/24/2024 4:59 PM CDT) Color, ur Straw Yellow Clarity, ur Clear Clear [facility] Specific gravity, ur 1.014 1.003 - 1.030 [facility] pH, urine 6.0 [facility] Comment: Interpretive Data U rine pH is affected by diet, medications, systemic acid-base disturbances, and renal tubular function. pH may affect urinary stone formation. For example, urine pH below 6.0 may help reduce the tendency for calcium phosphate stones and pH greater than 6.0 may reduce the tendency for uric acid stone formation. Source: [facility] Candescent [employer] Current Interpretive Data was last revised on 2017 Protein, ur ql Negative Negative [facility] Glucose, ur ql Negative Negative [facility] Ketones, ur Negative Negative [facility] Bilirubin, ur Negative Negative [facility] Blood, ur Negative Negative [facility] Urobilinogen, ur <2.0 <2.0 mg/dL [facility] Nitrite, ur Negative Negative [facility] Leukocyte esterase, ur Negative Negative [facility] UA reflex comment Reflex conditions for microscopic UA not met. [facility] Urine 04/24/2024 4:59 PM CDT 04/24/2024 5:06 PM CDT us Nicole Strickland MD LAB URINE ORDERABLE S Final Result Performing Organization Address City/[facility]/ZIP Co de Phone Number [facility] Department [place] [address] * (ABNORMAL) POCT urinalysis dipstick (04/24/2024 3:49 PM CDT) Glucose, ur, POC Negative Negative MG/DL TXP NO LAB FOUND Bilirubin, ur, POC Negative Negative, Small, Moderate, Large TXP NO LAB FOUND Ketones, ur, POC Negative Negative TXP NO LAB FOUND Specific [place], POC 1.020 1.003 - 1.030 TXP NO [...] Negative TXP NO LAB FOUND Lot Number [id number] TXP NO LA B FOUND Urine 04/24/2024 3:49 PM CDT Nicole Strickland MD POINT OF CARE TEST ORDERABLES Final Result [place] NO LAB FOUND * (ABNORMAL) Tacrolimus, Highly Sensitive, LC/MS/MS (03/07/2024 9:56 AM MODEL MAKING SUPERVISOR) Pathologist [facility] Tacrolimus, Highly Sensitive, LC/MS/MS 4.1(L) mcg/L [facility] Comment: No definitive therapeutic or toxic ranges have been established. Optimal blood drug levels are influenced by type of transplant, patient response, time post- transplant, co-administration of other drugs, and drug formulation. The following trough range is a suggested guideline: 5.0-20.0 mcg/L. 03/07/2024 9:56 AM MODEL MAKING SUPERVISOR 03/07/2024 9:57 AM MODEL MAKING SUPERVISOR Narrative [facility] - 03/08/2024 2:51 PM MODEL MAKING SUPERVISOR RW FASTING:NO FASTING: NO Jean Marie Zuñiga MD LAB BLOOD ORDERABLES Final Resu lt Performing Organization Address [facility]/ZIP Co de Phone Number QUEST [facility] [address] [place] [address] * COPY(IES) SENT TO: (03/07/2024 9:56 AM MODEL MAKING SUPERVISOR) [facility] COPY(IES) SENT TO: ROLDAN Comment: [facility] - COPY TO [address] [address] 03/07/2024 9:56 AM MODEL MAKING SUPERVISOR 03/07/2024 9:57 AM MODEL MAKING SUPERVISOR Narrative [facility] - 03/08/2024 2:51 PM MODEL MAKING SUPERVISOR RW FASTING:NO FASTING: NO Jean Marie Zuñiga MD LAB BLOOD ORDERABLES Final Resu lt [facility] * (ABNORMAL) CBC with auto differential (03/07/2024 9:56 AM MODEL MAKING SUPERVISOR) [facility] WBC 7.5 3.8 - 10.8 [...] % [facility] 03/07/2024 9:56 AM MODEL MAKING SUPERVISOR 03/07/2024 9:57 AM MODEL MAKING SUPERVISOR Narrative [facility] - 03/08/2024 2:51 PM MODEL MAKING SUPERVISOR RW FASTING:NO FASTING: NO us Jean Marie Zuñiga MD LAB BLOOD ORDERABLES Final Resu lt [facility] [address] [address] [address] * (ABNORMAL) Renal function panel (03/07/2024 9:56 AM MODEL MAKING SUPERVISOR) Glucose 129 65 - 139 mg/dL [facility] [...] g/dL [facility] 03/07/2024 9:56 AM MODEL MAKING SUPERVISOR 03/07/2024 9:57 AM MODEL MAKING SUPERVISOR Narrative [facility] - 03/08/2024 2:51 PM MODEL MAKING SUPERVISOR RW FASTING:NO FASTING: NO us Jean Marie Zuñiga MD LAB BLOOD ORDERABLES Final Resu lt [facility] [address] [place] [address] * Hepatitis C antibody (08/10/2016 9:28 PM CDT) Pathologist [facility] Hep C Ab Nonreactive Nonreactive [facility]IE [facility] Comment: Interpretive Data Positive and greyzone results should be confirmed by a molecular method. If positive or greyzone, a second separately collected sample should be submitted for Hepatitis C Virus RNA. Detection and Quantitation by Real-Time Reverse Gaming Surveillance Observer-PCR.Current Interpretive data was last revised on 2016. Blood specimen (specimen) 08/10/2016 9:28 PM CDT 08/10/2016 9:36 PM CDT Malgorzata PAULA LAB MICROBIOL OGY - GENERAL ORDERABLES Edited Result - Final STEFANIE [facility] Department [place] [address] from Last 3 Months or Most Recently Relevant to Health Maintenance Insurance [employer] MEDICARE HMO Advance Directives For more information, please contact: [phone] * Full Code (Latest Code Status on File) Date Activated Date Inactivated Comments 09/30/2020 7:06 PM 10/05/2020 2:14 PM Care Teams Reject Opener Relationship Specialty Start Date End Date Renea Hamilton MD [address]OUSER [address] [place] [address] PCP - General Internal Medicine 05/11/18 Alta Lopez, BRYSON Waiter/Waitress Economy Class 07/31/19 Carol Soriano, RN [address] [id number] Secondary Kidney Coordinator Transplant 03/05/20 Violetta Cagle MD [address] [address] Consulting Physician Nephrology 10/04/20
== END 2024-05-27 12:00 | disposition home or self-care (01) ==
PROVIDERS: Emergency Provider Registered Nurse; PCP Family Medicine
DX: J06.9 Acute upper respiratory infection, unspecified (principal); R05.1 Acute cough; I10 Essential (primary) hypertension; K21.9 Gastro-esophageal reflux disease without esophagitis; G62.9 Polyneuropathy, unspecified; F41.9 Anxiety disorder, unspecified; F32.A Depression, unspecified; Z94.0 Kidney transplant status
CPT/HCPCS: 99213; G0463